=== PATIENT | female | born 2000 | race African-American/Black ===

== ENCOUNTER 2021-12-05 00:14 | Emergency (ER) | payer BC, SELFPAY ==
[2021-12-05 00:15] VITALS: BP 124/54; PULSE 114; RESP 18; TEMP 35.6; O2SAT 98
[2021-12-05 00:18] VITALS: BP 124/54; PULSE 114; RESP 18; TEMP 35.6; O2SAT 98; BMI 30.6
[2021-12-05] MEDS: 0.9% Normal Saline 1,000 ML 1000 ML IV (00:45)
--- NOTE | 2021-12-05 01:04 | EDS_ITS ---
HPI History of Present Illness Chief Complaint: ETOH Intox Informant: patient and friend Onset/Context/Timing Onset: Today Current Severity: Mild Maximum Severity: Mild Associated Symptoms Associated Symptoms: Positive for vomiting*; Negative for diarrhea* or fever* Narrative Narrative: 21-year-old female no segment past medical or surgical history. She is a [employer] student. She is majoring in [employer] science. She is a senior and will graduate in September. Ramandeep was drinking socially had rum and kamillaria thinks she may have had too much to drink and then started having nausea and vomiting. Her last drink was around 10:30 PM. She started to feel little better. No fall or trauma. There is a friend with her and said she had no trauma. Denies any recent illness or hospitalization. Denies any drug use. Prior similar symptoms: Yes Recent Illness/Hospitalization: No PFSH PFSH Medical History no medical history no medical history Home Medications ondansetron 4 mg disintegrating tablet 4 mg PO Q6H PRN nausea and vomiting #7 tabs 12/05/21 [Rx Last Taken Unknown] Allergy/AdvReac Type Severity Reaction Status Date / Time No Known Allergies Allergy Verified 12/05/21 00:25 Surgical History no surgical history no surgical history Social History Smoking Status: Never smoker ROS ROS ED ROS Narrative EtOH. Nausea vomiting. Review of Systems ROS Unobtainable: Denies due to encephalopathy Constitutional Constitutional ED: Denies chills or fever(s) Eyes Eyes: Denies blurry vision ENT ENT ED: Denies ear pain Cardiovascular Cardiovascular: Denies chest pain Respiratory/Chest Respiratory/Chest: Denies cough or dyspnea Gastrointestinal Gastrointestinal: Reports nausea and vomiting; Denies abdominal pain, constipation, diarrhea or melena Genitourinary Genitourinary ED: Denies dysuria Musculoskeletal Musculoskeletal: Denies arthralgias Integumentary Denies abscess Neurologic Neurologic: Denies headache(s) Psychiatric Psychiatric: Denies anxiety Endocrine Endocrinology: Denies cold intolerance Hematologic/Lymphatic Hematologic/Lymphatic: Denies easy bleeding Allergic/Immunologic Allergic/Immunologic ED: Denies mouth swelling or tongue swelling EXAM Physical Exam Narrative Exam Narrative: Well-appearing 21-year-old female. Vital signs are stable afebrile. Initial blood pressure 124/54. Temperature 96. Pulse ox 90% on room air no hypoxia. H EENT exam unremarkable atraumatic. Pupils round reactive light. No signs of trauma to her face or scalp. Nontender. Moist mucous membranes. Neck nontender no lymphadenopathy. Lungs clear to auscultation. Heart regular rhythm rate about 105 no murmur. Chest wall nontender. Abdomen soft nontender. Pelvic girdle intact. Moving all 4 extremities. Nontender. No deformity. Normal range of motion. Normal product craftsman strength and dorsi and plantar flexion. Neurologically she is awake and alert. She is calm. She is interactive. She answers questions and follows commands. She knows day month and year. Acting appropriately. She may be mildly intoxicated. Const Vital Signs: 12/05/21 00:18 12/05/21 00:15 12/05/21 01:43 Temperature 96.0 F L 96.0 F L Temperature Source Temporal Temporal Pulse Rate 114 H 114 H 111 H Respiratory Rate 18 18 16 Blood Pressure 124/54 H 124/54 H 123/66 H Blood Pressure Mean 77 77 85 Pulse Ox 98 98 100 Oxygen Delivery Method Room Air Room Air Room Air Positive well nourished and well developed; Negative for cachectic, contractures or unkempt General Appearance ED: well developed and NAD; Negative for unkempt, cachectic, contractures or pallor Nutritional Appearance: Negative for cachectic HEENT Reports moist mucous membranes; Denies dry mucous membranes Negative for atraumatic or trauma Mouth ED: No dry mucous membranes Mouth: No dry mucous membranes Eyes PERRL and EOMs intact bilaterally General Eye ED: Negative for pale conjunctiva or scleral icterus Neck no lymphadenopathy, supple and no JVD Thyroid: Negative for tender Lymph Lymphatic: no lymphadenopathy noted; Negative for lymphadenopathy Chest Wall inspection of chest normal and palpation of chest normal Chest: Negative for other Resp normal respiratory effort and clear to auscultation bilaterally Effort and Inspection: Negative for retractions Auscultation: Negative for rales, rhonchi or wheezes Cardio regular rate, regular rhythm, S1 normal heart sound, S2 normal heart sound and no murmurs Rate: Negative for bradycardia Rhythm: Negative for abnormal rhythm GI soft to palpation, non-tender, non-distended and no masses Inspection: Negative for abdominal distention Auscultation: Negative for hyperactive bowel sounds Palpation: Negative for tender, guarding or rigid Bladder / Kidney Exam: No other Back/Spine no CVA tenderness General Back: Negative for CVA tenderness Cervical Spine: Negative for cervical spine tenderness Thoracic Spine / Upper Back: Negative for thoracic spinal tenderness Lumbar Spine / Lower Back: Negative for lumbar spinal tenderness Coccyx: Negative for swelling Extremity General Extremety ED: Negative for edema or tenderness General Extremity: Negative for edema Neuro oriented x3 and CN's II-XII intact bilaterally Sensorium / Orientation: alert, oriented to person, oriented to place and oriented to time; Negative for confused, lethargic or stuporous Speech: speech normal Motor Exam: strength 5/5 throughout Psych mental status grossly normal and thought process normal Appearance: Negative for unkempt Attitude: No belligerent, No agitated, No aggressive and No hostile Mood & Affect: Negative for depressed, anxious or tearful Skin General Skin Exam: Negative for jaundice or pallor Lesions: no lesions Rashes: no rashes Trauma: Negative for abrasion MDM MDM MDM Narrative Medical decision making narrative: 21-year-old female [employer] student. Had 2 mixed drinks tonight. Had nausea vomiting. Exam benign. She is awake and alert. She will be treated with a liter normal saline, Zofran for nausea and an alcohol level be obtained. Repeat exam at 1:49 AM patient doing well. She is awake and alert. We went over her alcohol level. She is feeling much improved. She will be discharged back to the [employer]. She has a friend with her and they are calling security for a ride. She will be discharged with Zofran as needed tomorrow for nausea. Fluids and rest and no further drinking in the next 24 hours. Lab Data Attestation: I reviewed the patient's lab results. Lab results narrative: Alcohol level equals 108. Labs: Laboratory Results - last 24 hr 12/05/21 01:12 Ethyl Alcohol 108.0 Discharge Plan Triage Chief Complaint: ETOH Intox ED Provider: Phani Dickinson Dx/Rx/DC Orders Clinical Impression: Alcohol intoxication, Nausea & vomiting Instructions: ED Alcohol Intoxication, ED Vomiting (Adult) Prescriptions: New ondansetron 4 mg tablet,disintegrating 4 mg PO Q6H PRN (Reason: nausea and vomiting) Qty: 7 0RF Primary Care Provider: IKER HORTON Referrals: Wesley Sorensen MD [Med Staff - Studio Receptionist] - As Needed Town Doctor,Out of [Non-Staff] - Activity Restrictions/Additional Instructions: Plenty of fluids and rest. No alcohol for at least 24 hours. Tylenol for any body aches. You were given a prescription for Zofran that is a nausea medication. If you are nauseated later today get it filled. You can use 1 every 4 hours as needed for nausea if you do not feel nauseated you do not need to get it filled or take it at all. Disposition Disposition: Home, Self Care
[2021-12-05 01:43] VITALS: BP 123/66; PULSE 111; RESP 16; O2SAT 100
[2021-12-05] MEDS: Ondansetron 4 MG/2 ML Vial IV (01:43)
[2021-12-05 02:05] VITALS: BP 129/76; PULSE 86; RESP 18; O2SAT 98
== END 2021-12-05 02:10 | disposition home or self-care (01) ==
PROVIDERS: Emergency Provider Emergency Medicine; Visit Provider Emergency Medicine
DX: F10.129 Alcohol abuse with intoxication, unspecified (principal); Y90.5 Blood alcohol level of 100-119 mg/100 ml; R11.2 Nausea with vomiting, unspecified
CPT/HCPCS: 82077; 96361; 96374; 99285; A4216; J2405